=== PATIENT | male | born 1995 | race Two or more races ===

== ENCOUNTER 2018-12-16 14:36 | Emergency (ER) | payer OTHER ==
[~2018-12-16] VITALS: Ht 175.3 cm; Wt 86.2 kg
[2018-12-16 14:47] VITALS: BP 114/68
[2018-12-16] MEDS ORDERED: traMADol HCL 50 MG TAB PO ONE (16:45)
== END 2018-12-16 16:43 | disposition home or self-care (01) ==
LOC: ER 14:38 → EEVIPCON 14:38 → ER 16:43
DX: S83.91XA Sprain of unspecified site of right knee, initial encounter (principal); W21.89XA Striking against or struck by other sports equipment, initial encounter; Y93.66 Activity, soccer; Y92.39 Other specified sports and athletic area as the place of occurrence of the external cause; Y99.8 Other external cause status
CPT/HCPCS: 29505; 73562